=== PATIENT | male | born 1960 | race Caucasian/White ===

== ENCOUNTER → 2017-10-04 | Outpatient (CLI) | payer BC ==
[2015-06-08 12:36] VITALS: BMI 26.6
[~2017-10-04] MED LIST: ACET-1966 PO; AMOX-559 PO; ASPI-764 PO; CELE-1 PO; DIA5 PO; HYDR-2966 PO; HYDR-389 PO; IBUP-1671 PO; KET10 PO; LISI20TA29 PO; OXYC5CAP21 PO
[2017-10-04 09:31] LABS: PLATELET COUNT, AUTOMATED 226 K/uL (150-450)
[2017-10-04 10:07] LABS: LDL CHOLESTEROL 84 mg/dl
== END ==
LOC: LAB 09:01
PROVIDERS: ATTEND Nurse Practitioner Family
DX: I10 Essential (primary) hypertension (principal); Z79.899 Other long term (current) drug therapy
CPT/HCPCS: 36415; 82040; 82247; 82310; 82374; 82435; 82465; 82565; 82947; 83718; 84075; 84132; 84153; 84155; 84295; 84443; 84450; 84460; 84478; 84520; 85025

== ENCOUNTER → 2018-11-03 | Outpatient (CLI) | payer BC ==
[2015-06-08 12:36] VITALS: BMI 26.6
[2018-11-03 16:21] LABS: PLATELET COUNT, AUTOMATED 216 K/uL (150-450)
== END ==
LOC: LAB 15:39
PROVIDERS: ATTEND Nurse Practitioner Family
DX: I10 Essential (primary) hypertension (principal); Z79.899 Other long term (current) drug therapy
CPT/HCPCS: 36415; 82040; 82247; 82310; 82374; 82435; 82465; 82565; 82947; 83718; 84075; 84132; 84155; 84295; 84443; 84450; 84460; 84478; 84520; 85025